=== PATIENT | male | born 1945 | race Caucasian/White ===

== ENCOUNTER 2019-01-30 11:49 | Outpatient (CLI) | payer MEDICARE ==
[~2019-01-30 11:49] MED LIST: Iopamidol 370 76% 100 ML VIAL ONE
[2019-01-30 12:24] LABS: Estimated GFR-MDRD - POC Greater than 90
[2019-01-30 12:49] LABS: Anion Gap 14 mmol/L (10-20); BUN (Urea Nitrogen) 17 mg/dL (8.4-25.7); Calc. Creatinine Clearance 0 mL/min (70-130); Calcium 9.9 mg/dL (7.8-10.44); Carbon Dioxide 32 mmol/L (23-31); Chloride 100 mmol/L (98-107); Estimated GFR-MDRD Greater than 90; Glucose 89 mg/dL (83-110); Potassium 3.6 mmol/L (3.5-5.1); Sodium 142 mmol/L (136-145)
[2019-01-30 13:25] LABS: Bilirubin Negative (Negative); Blood, Urine Negative (Negative); Clarity Clear (Clear); Glucose, Urine (Dipstick) Negative (Negative); Leukocyte Trace (Negative); Nitrite Negative (Negative); Protein, Urine (Dipstick) Negative (Neg-Trace); Urobilinogen 0.2 mg/dL (Less than 2)
[2019-01-30 13:38] LABS: Bacteria/HPF Rare-Few HPF (None Seen); RBC/HPF 0-3 HPF (0-3); Squamous Epithelial None Seen HPF (0-3); WBC/HPF 0-3 HPF (0-3)
--- NOTE | 2019-01-30 15:38 | CT ---
CT ABDOMEN AND PELVIS WITH AND WITHOUT IV CONTRAST: HISTORY: Renal calculi. FINDINGS: There are mild patchy infiltrates in the right lower lobe. The liver, spleen, pancreas, adrenal gland s are normal. No calcified gallstones are seen. There is a 4 mm calculus in the inferior pole of the right kidney. No calculi is seen in the left kid maryan, either ureter or the urinary bladder. No hydroureteronephrosis seen on either side. There are ca lcifications in the prostate. Postcontrast images demonstrate a 15 mm cortical cyst in the left kidne y. There is normal contrast excretion into the kidneys and ureter. There is asymmetric thickening of the left lateral wall of the urinary bladder. There are vascular calcifications without evidence of aneurysmal dilatation of the abdominal aorta. N o free air, free fluid, or lymphadenopathy is seen in the abdomen or pelvis. There are degenerative c hanges in the spine. IMPRESSION: 1. Nonobstructing 4 mm right renal calculus. 2. 15 mm left renal cyst. 3. Urinary bladder wall thickening. Further evaluation with cystoscopy is recommended. POS: DUSTY
== END 2019-01-30 11:50 | disposition home or self-care (01) ==
LOC: SCSCT 11:49
PROVIDERS: ATTEND Urology
DX: N20.0 Calculus of kidney (principal); N40.1 Benign prostatic hyperplasia with lower urinary tract symptoms; R35.0 Frequency of micturition; N28.1 Cyst of kidney, acquired; N32.89 Other specified disorders of bladder
CPT/HCPCS: 36415; 74178; 80048; 81001; 87086; Q9967